=== PATIENT | male | born 2000 | race Caucasian/White ===

== ENCOUNTER 2020-03-30 01:10 | Emergency (ER) | payer MEDICAID ==
[~2020-03-30] VITALS: Ht 182.9 cm; Wt 75.1 kg
[2020-03-30 01:26] VITALS: Ht 182.9 cm; Wt 75.1 kg
[2020-03-30 04:59] VITALS: BP 117/56
== END 2020-03-30 04:59 | disposition home or self-care (01) ==
LOC: ED 01:10
DX: S62.306A Unspecified fracture of fifth metacarpal bone, right hand, initial encounter for closed fracture (principal); W51.XXXA Accidental striking against or bumped into by another person, initial encounter; Y93.89 Activity, other specified; Y92.89 Other specified places as the place of occurrence of the external cause; Y99.8 Other external cause status
CPT/HCPCS: 90715; Q0092